=== PATIENT | female | born 1965 | race Two or more races ===

== ENCOUNTER 2019-01-21 16:50 | Emergency (ER) | payer MEDICAID ==
[~2019-01-21] VITALS: Ht 154.9 cm; Wt 77.1 kg
[2019-01-21] MEDS ORDERED: ATORVASTATIN CA20 MG ORAL (17:01)
[2019-01-21] MEDS ORDERED: SERTRALINE HCL25 MG ORAL (17:01)
--- NOTE | 2019-01-21 17:27 | Diagnostic Imaging Report ---
Indication: Chest pain Technique: One view of the chest Comparison: none Findings: Lungs and pleural spaces are clear. Heart size is normal Impression: No acute process
[2019-01-21 17:42] LABS: EOSINOPHILS % (AUTO) 3.1 % (0.0-3.0); HEMATOCRIT 39.8 % (37.0-47.0); HEMOGLOBIN 13.5 G/DL (12.0-16.0); LYMPHOCYTES % (AUTO) 25.9 % (20.0-45.0); MEAN CORPUSCULAR VOLUME 91 FL (80-99); MONOCYTES % (AUTO) 9.6 % (1.0-10.0); NEUTROPHILS % (AUTO) 60.5 % (45.0-75.0); PLATELET COUNT 239 K/UL (150-450); RED BLOOD COUNT 4.38 M/UL (4.20-5.40); RED CELL DISTRIBUTION WIDTH 11.5 % (11.6-14.8); WHITE BLOOD COUNT 8.5 K/UL (4.8-10.8)
--- NOTE | 2019-01-21 17:51 | Emergency Room Report ---
History of Present Illness General Chief Complaint: Chest Pain Source: Patient Present Illness HPI Disclaimer: Please note that this report is being documented using [employer] technology. This can lead to erroneous entry secondary to incorrect interpretation by the dictating instrument. HPI: 51-year-old female presents for evaluation of chest pain shortness of breath. Symptoms began this morning while at work approximately 11 AM. The patient was at rest and noticed pins and needle sensation over the chest and a both sharp and somewhat squeezing sensation. There is radiation of this pins- and-needles sensation up the left side of the neck and into the left side of the face as well as down the left arm. She felt flushed and nauseated but did not vomit. She tried to take a walk but found she was somewhat short of breath while ambulating. She went home early to rest but no significant improvement in her symptoms. He has a history of anxiety and took some sertraline at home which did not improve her symptoms and decided to come to the emergency department. Symptoms started approximately 6 hours ago and total. She states she has now completely resolved and has no chest pain or shortness of breath. She has noted a "knot" in her stomach intermittently for several years but has not been evaluated for GERD or other peptic ulcer disease/causes of abdominal discomfort. She takes no antacids. No family history of heart disease. PMH: Anxiety PSH: Denies Allergies: Denies Social Hx: Denies drug, alcohol or tobacco use Allergies: Coded Allergies: No Known Allergies (Unverified , 01/21/19) Nursing Documentation-PMH Past Medical History: No History, Except For Hx Hypertension: Yes History Of Psychiatric Problem: Yes - anxiety Review of Systems All Other Systems: negative except mentioned in HPI Physical Exam Vital Signs Date Time Temp Pulse Resp B/P (MAP) Pulse Ox O2 Delivery O2 Flow Rate FiO2 01/21/19 16:56 98.8 66 20 178/96 (123) 97 Room Air General: Awake and alert, no acute distress HEENT: NC/AT. EOMI. Chest Wall: No tenderness, no deformity Cardiovascular: RRR. S1 and S2 normal. No murmur appreciated Resp: Normal work of breathing. No cough, wheezing or crackles appreciated Abdomen: Abdomen is soft, nondistended. Nontender Skin: Intact. No abrasions, laceration or rash over the exposed skin MSK: Normal tone and bulk. Moving all extremities. Obese abdomen. No obvious deformity. Neuro: Awake and alert. Mentating appropriately. Medical Decision Making Diagnostic Impression: Primary Impression: Chest pain ER Course 53-year-old female presents for evaluation of chest pain and shortness of breath beginning earlier today now resolved. Differential includes was not limited to angina, ACS, GERD, pneumonia, bronchitis, esophageal spasm, anxiety, arrhythmia. The patient's story is concerning for cardiac causes of chest pain particularly the radiation to the left side of the neck and arm, the nausea and the diaphoresis. Currently, she her symptoms are resolved. Will perform chest pain work-up and give aspirin. Patient will likely be admitted for cardiac work -up given the concerning story of her presentation today Laboratory Tests Test 01/21/19 17:20 White Blood Count 8.5 K/UL (4.8-10.8) Red Blood Count 4.38 M/UL (4.20-5.40) Hemoglobin 13.5 G/DL (12.0-16.0) Hematocrit 39.8 % (37.0-47.0) Mean Corpuscular Volume 91 FL (80-99) Mean Corpuscular Hemoglobin 30.7 PG (27.0-31.0) Mean Corpuscular Hemoglobin Concent 33.8 G/DL (32.0-36.0) Red Cell Distribution Width 11.5 % (11.6-14.8) L Platelet Count 239 K/UL (150-450) Mean Platelet Volume 8.5 FL (6.5-10.1) Neutrophils (%) (Auto) 60.5 % (45.0-75.0) Lymphocytes (%) (Auto) 25.9 % (20.0-45.0) Monocytes (%) (Auto) 9.6 % (1.0-10.0) Eosinophils (%) (Auto) 3.1 % (0.0-3.0) H Basophils (%) (Auto) 1.0 % (0.0-2.0) Sodium Level 141 MMOL/L (136-145) Potassium Level 3.4 MMOL/L (3.5-5.1) L Chloride Level 107 MMOL/L (98-107) Carbon Dioxide Level 23 MMOL/L (21-32) Anion Gap 11 mmol/L (5-15) Blood Urea Nitrogen 14 mg/dL (7-18) Creatinine 0.6 MG/DL (0.55-1.30) Estimate Glomerular Filtration Rate > 60 mL/min (>60) Glucose Level 125 MG/DL (74-106) H Calcium Level 9.0 MG/DL (8.5-10.1) Total Bilirubin 0.4 MG/DL (0.2-1.0) Aspartate Amino Transferase (AST) 26 U/L (15-37) Alanine Aminotransferase (ALT) 28 U/L (12-78) Alkaline Phosphatase 132 U/L (46-116) H Total Creatine Kinase 172 U/L (26-308) Creatine Kinase MB 1.9 NG/ML (0.0-3.6) Creatine Kinase MB Relative Index 1.1 Troponin I 0.000 ng/mL (0.000-0.056) Total Protein 7.8 G/DL (6.4-8.2) Albumin 3.6 G/DL (3.4-5.0) Globulin 4.2 g/dL Albumin/Globulin Ratio 0.9 (1.0-2.7) L EKG Diagnostic Results EKG Time: 17:19 Rhythm: NSR Other Impression Sinus rhythm, normal axis. There is a right bundle branch block pattern in the precordial leads though there is some ST depressions in the inferior and in the lateral leads. T wave inversions in V3. No prior for comparison. Rhythm Strip Diag. Results Rhythm Strip Time: 17:19 EP Interpretation: yes Rate: 60s Rhythm: NSR Chest X-Ray Diagnostic Results Chest X-Ray Diagnostic Results : # of Views/Limited/Complete: 1 View Indication: Chest Pain EP Interpretation: Yes Interpretation: no consolidation, no effusion, no pneumothorax Impression: No acute disease Electronically Signed by: Electronically signed by Dr. Rajesh Lino Reevaluation Time: 18:41 Last Vital Signs Date Time Temp Pulse Resp B/P (MAP) Pulse Ox O2 Delivery O2 Flow Rate FiO2 01/21/19 16:56 98.8 66 20 178/96 (123) 97 Room Air Status: improved Reevaluation Impression Patient is feeling greatly improved and is currently asymptomatic. Chest x-ray unremarkable. EKG is concerning for right bundle branch block pattern as well as T wave inversions, ST segment depressions without a prior for comparison. Troponin is negative and lab work is otherwise unremarkable. She did receive aspirin. I land on admitting the patient for stress test and cardiac work-up given her concerning presentation and changes in her EKG however she is resistant but after long discussion she is now willing to stay for cardiology evaluation. A repeat EKG was performed which shows a similar pattern to the first with a right bundle branch block pattern, slurred S waves in the lateral leads and inverted T wave in III. Patient did receive aspirin. She will be admitted for cardiac evaluation. 2240: During discussion with the admitting physician, Dr. Banegas, who is a manager outpatient, it was determined that the patient would not necessarily meet admission criteria and that a stress test could not be performed for the next 2 days as it is the weekend. A second troponin was ordered which was within normal limits. The patient has been chest pain-free since arrival and was herself requesting to return home. Admitting physician did recommend outpatient follow-up scheduled through her PMD. Shared decision making was undertaken with the family. He would much rather be discharged home with outpatient follow-up then be admitted to the hospital at this time. The patient herself believe that this is secondary to anxiety and does not necessarily believe that she needs a cardiac work-up at this time however strongly encouraged her to follow-up with her A[facility] and schedule an outpatient cardiology evaluation at the next available appointment. I did stress to them that they should return to the emergency department immediately if she has any recurrence of chest discomfort, lightheadedness, palpitations, numbness or tingling or any other symptoms. Family and patient understand agree to this treatment plan were discharged home. Disposition: HOME, SELF-CARE Condition: Stable Referrals: NOT CHOSEN NORI/,REFERRING (PCP) Rajesh Lino MD Jan 21, 2019 17:50
[2019-01-21] MEDS ORDERED: Aspirin Baby 81mg ORAL ONE (18:00)
[2019-01-21 18:01] LABS: ANION GAP 11 mmol/L (5-15); BLOOD UREA NITROGEN 14 mg/dL (7-18); CARBON DIOXIDE 23 MMOL/L (21-32); CHLORIDE 107 MMOL/L (98-107); CREATININE 0.6 MG/DL (0.55-1.30); POTASSIUM 3.4 MMOL/L (3.5-5.1); SODIUM 141 MMOL/L (136-145)
[2019-01-21 18:18] LABS: ALANINE AMINOTRANSFERASE 28 U/L (12-78); ALBUMIN 3.6 G/DL (3.4-5.0); ALBUMIN/GLOBULIN RATIO 0.9 (1.0-2.7); ALKALINE PHOSPHATASE 132 U/L (46-116); ASPARTATE AMINO TRANSFERASE 26 U/L (15-37); BILIRUBIN,TOTAL 0.4 MG/DL (0.2-1.0); CKMB 1.9 NG/ML (0.0-3.6); CREATINE KINASE 172 U/L (26-308)
[2019-01-21 18:23] VITALS: BP 160/77
--- NOTE | 2019-01-21 18:32 | NUR ---
ED Nurse Note: pt walked in with son from home c/o cp that moves to left arm. pt placed on monitor blood and urine sent pt medicated vss will monitor.
--- NOTE | 2019-01-21 19:07 | NUR ---
HAND-OFF: Report given to Stephanie REESE.
--- NOTE | 2019-01-21 20:05 | NUR ---
ED Nurse Note: Belongings sheet complete. Awaiting room assignment to call for report. Patient is resting comfortably with no s/s of acute distress. Patient reports intermittent chest pain 5/10, will consult ERMD for instructions. Will continue to monitor.
--- NOTE | 2019-01-21 20:21 | NUR ---
ED Nurse Note: Called and gave report to Desire REESE.
--- NOTE | 2019-01-21 20:45 | NUR ---
ED Nurse Note: Patient returned to ER.
--- NOTE | 2019-01-21 20:55 | NUR ---
ED Nurse Note: Additional troponin lab drawn and sent to lab.
[2019-01-21 22:29] VITALS: BP 160/77
--- NOTE | 2019-01-21 22:29 | NUR ---
ED Nurse Note: Patient cleared for discharge by Alex. Patient vitals are stable. Patient is A&Ox4, ambulatory with steady gait, Sinus rhythm. Patient verbalized understanding of discharge instructions. Patient departed with all belongings accompanied by spouse and son.
--- NOTE | 2019-01-23 12:52 | Cardiology Report ---
APPROVED REPORT EKG Measurement Heart [id number] Normal sinus rhythm Right bundle branch block Abnormal ECG
== END 2019-01-21 22:29 | disposition home or self-care (01) ==
LOC: EMR 17:22 → 2E 19:48 → UNDOADMIN 19:48 → EDBEDREQ 20:09 → CANBEDREQ 20:50 → EMR 22:29
DX: R07.9 Chest pain, unspecified (principal); F41.9 Anxiety disorder, unspecified; I10 Essential (primary) hypertension; I45.10 Unspecified right bundle-branch block
CPT/HCPCS: 36415; 71045; 80053; 82550; 82553; 84484; 85025; 93005; 99284